=== PATIENT | female | born 1935 | race Caucasian/White ===

== ENCOUNTER 2020-12-03 11:27 | Inpatient (IN) | payer OTHER, MEDICAID, SELFPAY ==
[~2020-12-03] VITALS: Ht 152.4 cm; Wt 88.5 kg
[~2020-12-03 11:27] MED LIST: ASPI-1393 PO; CHLO4TAB36 PO; CHOL100034 PO; DOCU-144 PO; ESZO2TAB22 PO; FEXO180T94 PO; LORA-259 PO; MONT10TA33 PO; NEBI5TAB3 PO; RANI-362 PO; ROSU20TA2 PO; SOLI5TAB2 PO; TRAM50TA PO; VALS1TAB2 PO
[2020-12-03 11:34] VITALS: BP_SYST 132
[2020-12-03 12:17] LABS: BASOPHILS % (AUTO) 0.3 % (0.0-2.0); EOSINOPHILS % (AUTO) 0.5 % (0.0-4.0); HEMATOCRIT 38.8 % (36-48); HEMOGLOBIN 12.8 g/dL (12.0-16.0); LYMPHOCYTES # (AUTO) 0.9 K/uL (1.0-5.5); LYMPHOCYTES % (AUTO) 18.5 % (20.5-51.5); MEAN CORPUSCULAR HEMOGLOBIN 30 pg (27-31); MEAN CORPUSCULAR HGB CONC 33 % (32-36); MEAN CORPUSCULAR VOLUME 91 fL (79.0-98.0); MONOCYTES # (AUTO) 0.5 K/uL (0.0-1.0); MONOCYTES % (AUTO) 10.1 % (1.7-9.3); NEUTROPHILS # (AUTO) 3.6 K/uL (1.8-7.7); NEUTROPHILS % (AUTO) 70.6 % (40.0-70.0); PLATELET COUNT (AUTO) 124 K/uL (130-430); RED BLOOD CELL COUNT(AUTO) 4.29 MIL/uL (4.2-6.2); RED CELL DISTRIBUTION WIDTH 14.8 % (9.0-15.0); WHITE BLOOD COUNT (AUTO) 5.1 K/uL (4.8-10.8)
[2020-12-03 12:32] LABS: ANION GAP 6 (5-15); CALCIUM 9.6 mg/dL (8.4-11.0); CHLORIDE 104 mmol/L (98-107); CREATININE 1.24 mg/dL (0.55-1.30); GLUCOSE 101 mg/dL (70-99); POTASSIUM 3.6 mmol/L (3.5-5.1); SODIUM SERUM 140 mmol/L (136-145); UREA NITROGEN, BLOOD 43 mg/dL (8-21)
[2020-12-03 12:34] LABS: PROTHROMBIN TIME 10.2 SECS (9.5-12.5)
[2020-12-03 12:37] LABS: ALANINE AMINOTRANSFERASE 24 U/L (12-78); ALBUMIN 3.4 g/dL (3.4-4.8); ASPARTATE AMINOTRANSFERASE 19 U/L (10-37); TOTAL BILIRUBIN 0.7 mg/dL (0.0-1.0)
[2020-12-03 12:38] LABS: ALCOHOL, BLOOD < 3 mg/dL (<10)
[2020-12-03 14:02] LABS: BILIRUBIN,URINE NEGATIVE (NEGATIVE); BLOOD, URINE 2+ (NEGATIVE); CLARITY/URINE CLEAR (CLEAR); COLOR,URINE YELLOW (YELLOW); GLUCOSE,URINE NEGATIVE (NEGATIVE); KETONES,URINE NEGATIVE (NEGATIVE); LEUKOCYTE ESTERASE ,URINE NEGATIVE (NEGATIVE); NITRITE, URINE NEGATIVE (NEGATIVE); PH,URINE 5.5 (5.0-8.0); PROTEIN URINE NEGATIVE (NEGATIVE); UROBILINOGEN,URINE 0.2 (0.2-1.0)
[2020-12-03 14:12] LABS: BACTERIA,URINE FEW /HPF (None Seen); MUCUS,URINE 1+ /LPF (None Seen); WBC,URINE 0-3 /HPF (0-3)
[2020-12-03 14:18] LABS: BARBITURATE, URINE NEGATIVE (NEG <=200); CANNABINOID, URINE NEGATIVE (NEG <=50); COCAINE, URINE NEGATIVE (NEG <=150); METHAMPHETAMINES SCREEN,URINE NEGATIVE (NEG <=500); OPIATE, URINE POSITIVE (NEG <=100); PHENCYCLIDINE SCREEN,URINE NEGATIVE (NEG <=25); UR TRICYCLIC ANTIDEPRESSANTS NEGATIVE (NEG <=300); URINE AMPHETAMINE NEGATIVE (NEG <=500); URINE METHADONE NEGATIVE (NEG <=200); URINE OXYCODONE SCREEN NEGATIVE (NEG <=100); URINE PROPOXYPHENE SCREEN NEGATIVE (NEG <=300)
[2020-12-03 14:19] LABS: BENZODIAZEPINE, URINE POSITIVE (NEG <=150)
[2020-12-03 16:00] VITALS: BP_SYST 114
[2020-12-03 16:41] VITALS: BP_SYST 114
[2020-12-03 16:42] VITALS: BP_SYST 114
[2020-12-03] MEDS ORDERED: LORazepam 1 MG TABLET PO PRN (18:15)
[2020-12-03] MEDS ORDERED: CHLORPHENIRAMINE MALEATE PO SCH (18:15)
[2020-12-03] MEDS ORDERED: ONDANSETRON HCL 4 MG/2 ML VIAL IVP PRN (18:15)
[2020-12-03] MEDS ORDERED: ZOLPIDEM TARTRATE 5 MG TABLET PO PRN (19:30)
[2020-12-03] MEDS: ACETAMINOPHEN 325 MG TABLET PO PRN (19:40)
[2020-12-03] MEDS: METOPROLOL TARTRATE 50 MG TABLET PO SCH (20:46)
[2020-12-03] MEDS: traMADol HCL HCL 50 MG TABLET (ULTRAM) PO SCH (20:47)
[2020-12-03] MEDS ORDERED: NON-FORMULARY MEDICATION (Eszopiclone (Lunesta) 2 MG) PO SCH (21:00)
[2020-12-03] MEDS ORDERED: NON-FORMULARY MEDICATION (Ranitidine Hcl (Acid Reducer 150) 1 TAB) PO SCH (21:00)
[2020-12-03 21:53] VITALS: BP_SYST 133
[2020-12-03] MEDS ORDERED: NORMAL SALINE 5 ML DISP.SYRIN IVF SCH (22:00)
[2020-12-03] MEDS: NORMAL SALINE 5 ML DISP.SYRIN IVF SCH (22:15)
[2020-12-04] VITALS: BP_SYST 137
[2020-12-04] MEDS: ACETAMINOPHEN 325 MG TABLET PO PRN ×2 (04:14→14:21)
[2020-12-04] MEDS: NORMAL SALINE 5 ML DISP.SYRIN IVF SCH ×2 (05:38→13:22)
[2020-12-04 06:41] LABS: BASOPHILS % (AUTO) 0.4 % (0.0-2.0); EOSINOPHILS % (AUTO) 0.6 % (0.0-4.0); HEMATOCRIT 37.4 % (36-48); HEMOGLOBIN 12.5 g/dL (12.0-16.0); LYMPHOCYTES # (AUTO) 1.3 K/uL (1.0-5.5); LYMPHOCYTES % (AUTO) 28.8 % (20.5-51.5); MEAN CORPUSCULAR HEMOGLOBIN 30 pg (27-31); MEAN CORPUSCULAR HGB CONC 33 % (32-36); MEAN CORPUSCULAR VOLUME 90 fL (79.0-98.0); MONOCYTES # (AUTO) 0.5 K/uL (0.0-1.0); MONOCYTES % (AUTO) 11.1 % (1.7-9.3); NEUTROPHILS # (AUTO) 2.6 K/uL (1.8-7.7); NEUTROPHILS % (AUTO) 59.1 % (40.0-70.0); PLATELET COUNT (AUTO) 112 K/uL (130-430); RED BLOOD CELL COUNT(AUTO) 4.17 MIL/uL (4.2-6.2); RED CELL DISTRIBUTION WIDTH 14.9 % (9.0-15.0); WHITE BLOOD COUNT (AUTO) 4.4 K/uL (4.8-10.8)
[2020-12-04 07:05] LABS: ANION GAP 7 (5-15); CALCIUM 9.4 mg/dL (8.4-11.0); CHLORIDE 104 mmol/L (98-107); CREATININE 0.93 mg/dL (0.55-1.30); GLUCOSE 104 mg/dL (70-99); PHOSPHORUS 2.9 mg/dL (2.7-4.5); POTASSIUM 3.3 mmol/L (3.5-5.1); SODIUM SERUM 139 mmol/L (136-145); UREA NITROGEN, BLOOD 30 mg/dL (8-21)
[2020-12-04 08:14] VITALS: BP_SYST 129
[2020-12-04] MEDS: METOPROLOL TARTRATE 50 MG TABLET PO SCH (08:19)
[2020-12-04] MEDS: traMADol HCL HCL 50 MG TABLET (ULTRAM) PO SCH ×2 (08:21→13:01)
[2020-12-04] MEDS ORDERED: VALSARTAN PO SCH (09:00)
[2020-12-04] MEDS ORDERED: HYDROCHLOROTHIAZIDE PO SCH (09:00)
[2020-12-04] MEDS ORDERED: LOSARTAN POTASSIUM 50 MG TABLET (COZAAR) PO SCH (09:00)
[2020-12-04] MEDS ORDERED: OXYBUTYNIN CHLORIDE 5 MG TABLET PO PRN (09:00)
[2020-12-04] MEDS ORDERED: ROSUVASTATIN CALCIUM 5 MG/TAB (CRESTOR) PO SCH (09:00)
[2020-12-04] MEDS ORDERED: DOCUSATE SODIUM 100 MG CAPSULE PO SCH (09:00)
[2020-12-04] MEDS ORDERED: ASPIRIN 81 MG TABLET(ECOTRIN) PO SCH (09:00)
[2020-12-04] MEDS ORDERED: HYDROCHLOROTHIAZIDE 12.5 MG CAPSULE (HCTZ) PO SCH (09:00)
[2020-12-04] MEDS ORDERED: FAMOTIDINE 20 MG TABLET PO SCH (09:00)
[2020-12-04] MEDS ORDERED: [UNRECOGNIZED DRUG - OTHER] PO SCH (09:00)
[2020-12-04] MEDS ORDERED: NEBIVOLOL HCL Non-Formulary 5 MG TABLET PO SCH (09:00)
[2020-12-04] MEDS ORDERED: LORATADINE 10 MG TABLET PO SCH (09:00)
[2020-12-04] MEDS ORDERED: ATORVASTATIN 20 MG TABLET PO SCH (09:00)
[2020-12-04] MEDS ORDERED: CHOLECALCIFEROL (VITAMIN D3) 2,000 UNIT TABLET PO SCH (09:00)
[2020-12-04] MEDS ORDERED: POTASSIUM CHLORIDE 20 MEQ TAB.PRT.SR PO ONE (10:45)
[2020-12-04 12:00] VITALS: BP_SYST 130
[2020-12-04] MEDS ORDERED: LOSARTAN POTASSIUM 25 MG TABLET ONE (12:50)
[2020-12-04 13:33] VITALS: BP_SYST 112
[2020-12-04 14:15] VITALS: BP_SYST 130
[2020-12-04 16:08] VITALS: BP_SYST 188
[2020-12-04] MEDS ORDERED: MONTELUKAST 10 MG TABLET PO SCH (18:00)
== END 2020-12-04 18:30 | disposition home or self-care (01) | DRG 312 ==
LOC: SED 11:27 → STU 13:25
PROVIDERS: ADMIT Preventive Medicine Preventive Medicine/Occupational Environmental Medicine; ATTEND Preventive Medicine Preventive Medicine/Occupational Environmental Medicine
DX: R55 Syncope and collapse (principal); G45.9 Transient cerebral ischemic attack, unspecified; D72.819 Decreased white blood cell count, unspecified; E55.9 Vitamin D deficiency, unspecified; E78.00 Pure hypercholesterolemia, unspecified; E78.5 Hyperlipidemia, unspecified; E87.6 Hypokalemia; F41.9 Anxiety disorder, unspecified; G40.909 Epilepsy, unspecified, not intractable, without status epilepticus; G89.29 Other chronic pain; I10 Essential (primary) hypertension; Z20.822 Contact with and (suspected) exposure to COVID-19; K21.9 Gastro-esophageal reflux disease without esophagitis; K59.00 Constipation, unspecified; G47.00 Insomnia, unspecified; R73.9 Hyperglycemia, unspecified; Z88.8 Allergy status to other drugs, medicaments and biological substances; Z86.73 Personal history of transient ischemic attack (TIA), and cerebral infarction without residual deficits
CPT/HCPCS: 36415; 70450-TC; 71045; 76376; 80048; 80053; 80307; 81000-TC; 83735-TC; 84100-TC; 84484; 85025; 85610-TC; 85730-TC; 93005; 93306; 93880; 95816; 97112-GP; 97163; G0378; G0482

== ENCOUNTER 2022-03-15 12:59 | Inpatient (IN) | payer OTHER, MEDICAID ==
[~2022-03-15] VITALS: Ht 149.9 cm; Wt 92.5 kg
[~2022-03-15 12:59] MED LIST changes: +MONT-40 PO; -MONT10TA33 PO
[2022-03-15 13:20] VITALS: BP_SYST 137
[2022-03-15] MEDS ORDERED: ASPIRIN 81 MG TAB.CHEW PO ONE (14:30)
[2022-03-15 14:57] LABS: BASOPHILS % (AUTO) 0.7 % (0.0-2.0); EOSINOPHILS # (AUTO) 0.1 K/uL (0.0-0.4); EOSINOPHILS % (AUTO) 1.3 % (0.0-4.0); HEMATOCRIT 35.4 % (36-48); HEMOGLOBIN 11.4 g/dL (12.0-16.0); LYMPHOCYTES # (AUTO) 1.2 K/uL (1.0-5.5); LYMPHOCYTES % (AUTO) 31.6 % (20.5-51.5); MEAN CORPUSCULAR HEMOGLOBIN 26 pg (27-31); MEAN CORPUSCULAR HGB CONC 32 % (32-36); MEAN CORPUSCULAR VOLUME 81 fL (79.0-98.0); MONOCYTES # (AUTO) 0.4 K/uL (0.0-1.0); MONOCYTES % (AUTO) 9.3 % (1.7-9.3); NEUTROPHILS # (AUTO) 2.3 K/uL (1.8-7.7); NEUTROPHILS % (AUTO) 57.1 % (40.0-70.0); PLATELET COUNT (AUTO) 154 K/uL (130-430); RED BLOOD CELL COUNT(AUTO) 4.35 MIL/uL (4.2-6.2); RED CELL DISTRIBUTION WIDTH 16.8 % (9.0-15.0); WHITE BLOOD COUNT (AUTO) 3.9 K/uL (4.8-10.8)
[2022-03-15 15:11] LABS: ANION GAP 4 (5-15); CALCIUM 9.6 mg/dL (8.4-11.0); CHLORIDE 101 mmol/L (98-107); CREATININE 0.76 mg/dL (0.55-1.30); GLUCOSE 113 mg/dL (70-99); POTASSIUM 4.3 mmol/L (3.5-5.1); SODIUM SERUM 138 mmol/L (136-145); UREA NITROGEN, BLOOD 28 mg/dL (8-21)
[2022-03-15 15:20] LABS: ALANINE AMINOTRANSFERASE 20 U/L (12-78); ALBUMIN 3.4 g/dL (3.4-4.8); ASPARTATE AMINOTRANSFERASE 24 U/L (10-37); TOTAL BILIRUBIN 0.4 mg/dL (0.0-1.0)
[2022-03-15] MEDS ORDERED: NITROGLYCERIN 0.4 MG TAB.SUBL SL ONE (15:45)
[2022-03-15] MEDS ORDERED: iohexoL 350 mgI/mL, 100 ML INFUS..BTL IV ONE (17:25)
[2022-03-15] MEDS ORDERED: MIRA50TA PO (17:27)
[2022-03-15] MEDS ORDERED: PREG75CA PO (17:27)
[2022-03-15] MEDS ORDERED: RESEYE OP (17:27)
[2022-03-15] MEDS ORDERED: [UNRECOGNIZED DRUG - OTHER] PO (17:27)
[2022-03-15] MEDS ORDERED: OLMESARTAN PO (17:27)
[2022-03-15] MEDS ORDERED: ALEN10TA25 PO (17:27)
[2022-03-15] MEDS ORDERED: LIDOINT TP (17:27)
[2022-03-15 20:37] VITALS: BP_SYST 153
== END 2022-03-15 20:38 | disposition left against medical advice (07) | DRG 313 ==
LOC: SED 12:59 → STU 17:08
PROVIDERS: ADMIT Preventive Medicine Preventive Medicine/Occupational Environmental Medicine; ATTEND Preventive Medicine Preventive Medicine/Occupational Environmental Medicine
DX: R07.89 Other chest pain (principal); I10 Essential (primary) hypertension; Z79.899 Other long term (current) drug therapy; Z88.8 Allergy status to other drugs, medicaments and biological substances
CPT/HCPCS: 36415; 71045; 71275; 76376; 80053; 83880; 84484; 85025; 85379; 99285; G0378; Q9967